=== PATIENT | male | born 1965 | race Caucasian/White ===

== ENCOUNTER 2016-06-03 08:36 | Emergency (ER) | payer OTHER | END 2016-06-03 09:24 | disposition home or self-care (01) | LOC: ER 08:36 | DX: M54.9 Dorsalgia, unspecified (principal); E66.01 Morbid (severe) obesity due to excess calories; I10 Essential (primary) hypertension; F32.9 Major depressive disorder, single episode, unspecified; Z79.899 Other long term (current) drug therapy | CPT/HCPCS: 96372; 99282-25 ==

== ENCOUNTER 2016-06-21 09:11 | Emergency (ER) | payer OTHER | END 2016-06-21 12:00 | disposition home or self-care (01) | LOC: ER 09:11 | DX: M54.5 Low back pain (principal); G89.29 Other chronic pain; I10 Essential (primary) hypertension; F17.220 Nicotine dependence, chewing tobacco, uncomplicated; Z79.899 Other long term (current) drug therapy | CPT/HCPCS: 99282 ==

== ENCOUNTER 2016-07-05 09:48 | Emergency (ER) | payer OTHER | END 2016-07-05 12:14 | disposition home or self-care (01) | LOC: ER 09:48 | DX: J06.9 Acute upper respiratory infection, unspecified (principal); M54.5 Low back pain; I10 Essential (primary) hypertension; F17.220 Nicotine dependence, chewing tobacco, uncomplicated; Z79.899 Other long term (current) drug therapy | CPT/HCPCS: 87400; 99283 ==

== ENCOUNTER 2016-08-09 13:53 | Emergency (ER) | payer OTHER | END 2016-08-09 15:41 | disposition home or self-care (01) | LOC: ER 13:53 | DX: M54.5 Low back pain (principal); G89.29 Other chronic pain; I10 Essential (primary) hypertension; J44.9 Chronic obstructive pulmonary disease, unspecified; F32.9 Major depressive disorder, single episode, unspecified; F41.9 Anxiety disorder, unspecified; E66.01 Morbid (severe) obesity due to excess calories; F17.220 Nicotine dependence, chewing tobacco, uncomplicated; Z79.899 Other long term (current) drug therapy | CPT/HCPCS: 96372; 99282-25 ==